=== PATIENT | male | born 1950 | race Caucasian/White ===

== ENCOUNTER → 2017-11-02 09:27 | Outpatient (CLI) | payer OTHER, SELFPAY ==
--- NOTE | 2017-11-02 09:35 | RAD_ITS ---
STUDY: X-RAY - CERVICAL SPINE REASON FOR EXAM: Male, 67 years old. Neck pain TECHNIQUE: 5 view(s) of the cervical spine were obtained. COMPARISON: None FINDINGS: There are degenerative changes of the anterior atlantoaxial articulation. Normal odontoid process. There is reversal of the normal cervical lordosis. There is multi-level endplate spondylosis. There is multi-level degenerative disc disease with multilevel disc space narrowing. There is multi-level osseous foraminal stenosis. The soft tissue structures are unremarkable. RAD/Cerv Spine 4 or 5 Views IMPRESSION: There is multi-level endplate spondylosis. There is multi-level degenerative disc disease with multilevel disc space narrowing. There is multi-level osseous foraminal stenosis. Electronically Signed: Valdemar Walker MD at 7:19 EDT Tel , Service support ,
--- NOTE | 2017-11-02 09:35 | RAD_ITS ---
STUDY: XR SPINE ENTIRE THORACIC T LUMBAR (W SKULL, CERVICAL AND SACRAL SPINE IF PERFORMED) REASON FOR EXAM: Male, 67 years old. hx of scoliosis, surgery on back when he was 18, hardware removed shortly after surgery TECHNIQUE: Radiological exam, spine, entire thoracic and lumbar, including skull, cervical and sacral spine if performed (eg, scoliosis evaluation); 2 or 3 views. COMPARISON: None. FINDINGS: There is a 71 degree dextroscoliosis of the thoracic spine with the apex of the convexity at the T8 level. There is a 14 degree levoscoliosis scoliosis of the lumbar spine with the apex of the convexity at the L2 level. Normal kyphosis of the thoracic spine. Normal thoracic vertebrae and endplates. Normal disc space heights of the thoracic spine. Normal lordosis of the lumbar spine. Normal lumbar vertebrae and endplates. Normal disc space heights of the lumbar spine. The soft tissue structures are unremarkable. RAD/Scoliosis 2 or 3 views IMPRESSION: There is a 71 degree dextroscoliosis of the thoracic spine with the apex of the convexity at the T8 level. There is a 14 degree levoscoliosis scoliosis of the lumbar spine with the apex of the convexity at the L2 level. Electronically Signed: Valdemar Walker MD at 7:27 EDT Tel , Service support ,
== END ==
PROVIDERS: Family Provider Family Medicine; PCP Family Medicine; Visit Provider Family Medicine
DX: M41.9 Scoliosis, unspecified (principal); M54.2 Cervicalgia; G89.29 Other chronic pain
CPT/HCPCS: 72050; 72082

== ENCOUNTER 2017-12-21 17:00 | Outpatient (RCR) | payer OTHER, SELFPAY ==
--- NOTE | 2017-11-11 11:22 | HP.PTEVAL_ITS ---
Patient's Visit Information NIA CUMMINGS is a 67 year old M referred to Physical Therapy by Ricki Arreguin MD with a diagnosis of NECK PAIN,DDD,SCOILOSIS. Date of Evaluation: 11/10/17 Physical Therapist: Boni Smallwood PT, - Visit Plan Frequency: 2x /Week Duration: 4 Weeks Plan: modliaties to include ICTX 16-22# X15 MIN,POSTURAL EX'S,MANUAL THERAPY, POSTURAL EX'S - Subjective Subjective: This 67 y/o male presents to physical therapy with cervical pain since May 2017. Patient sleeped in on Vacation ,symptoms got better but past 3 months worse. Patient has h/o scoliosis with surgery with olivas rods 50 years ago,but removed when 23 y/o . Patient is loctated right cercical radiates to right shoulder. Symptoms worse sleeping ,sitting,turning.Patient pain is constant. Patient c/o tingling,denies parathesia. Denies CABAN/tinnutis/dizziness. Patient pain affects sleeping has to take . NO h/o of trauma. Patient seen Dr did x-rays.Patient has h/o RTC.Pain level 4/5 without Advil. VOCATION: [employer]. SOCAIL: . HOBBIES: Mountain climb - Pain Right Neck Pain Intensity (Out of 10): 3 Pain Intensity Range: 10 - Objective POSTURE: mild foward posture ,left pelvis higher ,one inch higher due to scolilosis. GAIT: Ambulates with leaning to left due to scolisis. NEURO: denies parathesia/tingling ,reflexes C5-6-7. AROM: BE WFL. MMT: 4/5 grossly. PALAPTION: intact. CERVICAL ROM: flexion min loss,lateral flexion /rotation mod /severe loss,extension mod loss pain to right - Special Tests C/S Radiculapathy - Left Upper limb tension test: Negative C/S Radiculapathy - Right Upper limb tension test: Negative C/S Radiculapathy - Left Spurlings: Negative C/S Radiculapathy - Right Spurlings: Positive C/S Radiculapathy - Left Cervical distraction: Negative C/S Radiculapathy - Right Cervical distraction: Negative C/S Radiculapathy - Left Relief test: Negative C/S Radiculapathy - Right Relief test: Negative C/S Radiculapathy - Valsalva: Negative Sharp Zina: Negative Vertebral Artery Test: Negative Alar Ligament Test: Negative Cervical Sitting: Protrusion - Symptoms During Testing: No effect Cervical Sitting: Protrusion - Symptoms After Testing: No effect Cervical Sitting: Retraction - Mechanical Response: No effect Cervical Sitting: Retraction - Symptoms During Testing: Increases Cervical Sitting: Retraction - Symptoms After Testing: No worse - Goals Goal 1:: Independant with HEP Goal Time Frame: 4-6 Weeks Goal 2:: Independant with posture for ADL'S Goal Time Frame: 4-6 Weeks Goal 3:: Decrease right cervical pain and radicular symptoms to shoulder by 60% or greater to improve function. Goal Time Frame: 4-6 Weeks Goal 4:: Patient improve cervical ROM to improne function of recovery Goal Time Frame: 4-6 Weeks Goal 5:: Patient be able to perform ADL'S and housework tasks/job demands with min limitations. Goal Time Frame: 4-6 Weeks - Rehabilitation Potential Physical Therapy Diagnosis: This patient appears to have possible right lateral stenosis with h/o scoliosis thus could be a contributing factor with loss of motion,pain impairs function ,job demands and ADL'S Rehabilitation Potential: Good - Anticipated Interventions Patient/Client Instruction: Educate patient on: Condition, Plan of Care For the Purpose of:: To decrease pain, To increase ROM, To improve muscle performance and motor function, To improve ability to perform ADL's, To increase tolerance to activity/condition/position, To improve ability of physical actions for home/community/work/leisure, To improve health of tissue, To decrease soft tissue restriction, To increase flexibility/ROM, To improve health and function, To improve ability to perform tasks related to life management Therapeutic Exercise to Include: Strength training, Postural training, Flexibilty training, Scapular Strength/Stabilization For the Purpose of:: To decrease pain, To increase ROM, To improve muscle performance and motor function, To increase tolerance to activity/condition/ position, To improve performance and independence with ADL's, To improve ability of physical actions for home/community/work/leisure, To improve health of tissue, To decrease soft tissue restriction, To increase flexibility/ROM, To reduce risk of recurrence, To improve ability to perform tasks related to life management Manual Therapy Techniques to Include: Mobilization For the Purpose of:: To decrease pain, To increase ROM, To improve muscle performance and motor function, To improve ability to perform ADL's, To increase tolerance to activity/condition/position, To improve ability of physical actions for home/community/work/leisure, To improve health of tissue, To decrease soft tissue restriction, To increase flexibility/ROM, To reduce risk of recurrence, To improve ability to perform tasks related to life management TENS: Yes IF ES: Yes Cryotherapy (ice pack, ice massage): Yes Thermo therapy (hot pack): Yes Ultrasound (thermal/non thermal): Yes Intermittent cervical traction: Yes - 15-# For the Purpose of:: To decrease pain, To increase ROM, To improve nutrient delivery to tissue, To increase oxygenation perfusion, To improve health of tissue, To decrease soft tissue restriction, To increase flexibility/ROM Thank you for the opportunity to evaluate your patient. For Medicare and Medicare HMO plans, please review the plan of care and approve it. It will need to be FAXED BACK to us at [phone] for Medicare purposes. Please let me know if there are questions or concerns regarding this plan of care. Physician Signature: Date:
--- NOTE | 2017-12-21 17:51 | HP.PTEVAL_ITS ---
Patient's Visit Information NIA CUMMINGS is a 67 year old M referred to Physical Therapy by Ricki Arreguin MD with a diagnosis of NECK PAIN,DDD,SCOILOSIS. Date of Evaluation: 11/10/17 Physical Therapist: Boni Smallwood PT, - Visit Plan Frequency: 2x /Week Duration: 4 Weeks Plan: d/c to [facility] ,home traction unit - Subjective Subjective: This 67 y/o male presents to physical therapy with cervical pain since May 2017. Patient sleeped in on Vacation ,symptoms got better but past 3 months worse. Patient has h/o scoliosis with surgery with olivas rods 50 years ago,but removed when 23 y/o . Patient is loctated right cercical radiates to right shoulder. Symptoms worse sleeping ,sitting,turning.Patient pain is constant. Patient c/o tingling,denies parathesia. Denies CABAN/tinnutis/dizziness. Patient pain affects sleeping has to take . NO h/o of trauma. Patient seen Dr did x-rays.Patient has h/o RTC.Pain level 4/5 without Advil. VOCATION: [employer]. SOCAIL: . HOBBIES: Mountain climb - Pain Right Neck Pain Intensity (Out of 10): 1 Pain Intensity Range: 10 - Objective POSTURE: mild foward posture ,left pelvis higher ,one inch higher due to scolilosis. GAIT: Ambulates with leaning to left due to scolisis. NEURO: denies parathesia/tingling ,reflexes C5-6-7. AROM: BE WFL. MMT: 4/5 grossly. PALAPTION: intact. CERVICAL ROM: flexion min loss,lateral flexion /rotation mod /severe loss,extension mod loss pain to right - Special Tests C/S Radiculapathy - Left Upper limb tension test: Negative C/S Radiculapathy - Right Upper limb tension test: Negative C/S Radiculapathy - Left Spurlings: Negative C/S Radiculapathy - Right Spurlings: Positive C/S Radiculapathy - Left Cervical distraction: Negative C/S Radiculapathy - Right Cervical distraction: Negative C/S Radiculapathy - Left Relief test: Negative C/S Radiculapathy - Right Relief test: Negative C/S Radiculapathy - Valsalva: Negative Sharp Zina: Negative Vertebral Artery Test: Negative Alar Ligament Test: Negative Cervical Sitting: Protrusion - Symptoms During Testing: No effect Cervical Sitting: Protrusion - Symptoms After Testing: No effect Cervical Sitting: Retraction - Mechanical Response: No effect Cervical Sitting: Retraction - Symptoms During Testing: Increases Cervical Sitting: Retraction - Symptoms After Testing: No worse - Goals Goal 1:: Independant with HEP Goal Time Frame: 4-6 Weeks Goal 2:: Independant with posture for ADL'S Goal Time Frame: 4-6 Weeks Goal 3:: Decrease right cervical pain and radicular symptoms to shoulder by 60% or greater to improve function. Goal Time Frame: 4-6 Weeks Goal 4:: Patient improve cervical ROM to improne function of recovery Goal Time Frame: 4-6 Weeks Goal 5:: Patient be able to perform ADL'S and housework tasks/job demands with min limitations. Goal Time Frame: 4-6 Weeks - Rehabilitation Potential Physical Therapy Diagnosis: This patient appears to have possible right lateral stenosis with h/o scoliosis thus could be a contributing factor with loss of motion,pain impairs function ,job demands and ADL'S Rehabilitation Potential: Good - Anticipated Interventions Patient/Client Instruction: Educate patient on: Condition, Plan of Care For the Purpose of:: To decrease pain, To increase ROM, To improve muscle performance and motor function, To improve ability to perform ADL's, To increase tolerance to activity/condition/position, To improve ability of physical actions for home/community/work/leisure, To improve health of tissue, To decrease soft tissue restriction, To increase flexibility/ROM, To improve health and function, To improve ability to perform tasks related to life management Therapeutic Exercise to Include: Strength training, Postural training, Flexibilty training, Scapular Strength/Stabilization For the Purpose of:: To decrease pain, To increase ROM, To improve muscle performance and motor function, To increase tolerance to activity/condition/ position, To improve performance and independence with ADL's, To improve ability of physical actions for home/community/work/leisure, To improve health of tissue, To decrease soft tissue restriction, To increase flexibility/ROM, To reduce risk of recurrence, To improve ability to perform tasks related to life management Manual Therapy Techniques to Include: Mobilization For the Purpose of:: To decrease pain, To increase ROM, To improve muscle performance and motor function, To improve ability to perform ADL's, To increase tolerance to activity/condition/position, To improve ability of physical actions for home/community/work/leisure, To improve health of tissue, To decrease soft tissue restriction, To increase flexibility/ROM, To reduce risk of recurrence, To improve ability to perform tasks related to life management TENS: Yes IF ES: Yes Cryotherapy (ice pack, ice massage): Yes Thermo therapy (hot pack): Yes Ultrasound (thermal/non thermal): Yes Intermittent cervical traction: Yes - 15-# For the Purpose of:: To decrease pain, To increase ROM, To improve nutrient delivery to tissue, To increase oxygenation perfusion, To improve health of tissue, To decrease soft tissue restriction, To increase flexibility/ROM Thank you for the opportunity to evaluate your patient. For Medicare and Medicare HMO plans, please review the plan of care and approve it. It will need to be FAXED BACK to us at [phone] for Medicare purposes. Please let me know if there are questions or concerns regarding this plan of care. Physician Signature: Date:
--- NOTE | 2017-12-21 17:51 | HP.PTDCSUM_ITS ---
HP - PT D/C Summary It has been my pleasure to treat NIA CUMMINGS under orders from Ricki Arreguin MD, for the diagnosis of NECK PAIN,DDD,SCOILOSIS for a total of 10 visit(s). Discharge Date: 12/21/17 Please see the following information for a summary of their discharge status. - Subjective Subjective: Doing alot better.. Walking better ,less pain. I hardly noticted the symptoms only when I - Pain Right Neck Pain Intensity (Out of 10): 1 - Overall Improvement % Improvement: 75 - Objective Objective/Function: POSTURE: mild foward posture. PALAPTION: tender UT/ levator. NEURO: c/o tingling UT ,reflexes inact. MMT: 4/5 grossly. CERVICAL ROM: flexion min loss ,extension mod loss,lateral flexion/rotation mod loss tight to right - Goals Goal 1:: Independant with HEP Goal Progress: Goal Met Goal 2:: Independant with posture for ADL'S Goal Progress: Goal Met Goal 3:: Decrease right cervical pain and radicular symptoms to shoulder by 60% or greater to improve function. Goal Progress: Goal Met Goal 4:: Patient improve cervical ROM to improne function of recovery Goal Progress: Goal Met Goal 5:: Patient be able to perform ADL'S and housework tasks/job demands with min limitations. Goal Progress: Goal Met - Plan Plan: d/c to [facility] ,home traction unit - D/C Information Discharge Comments: [facility],HOME TRACTION. PATIENT PLANS TO HAVE MRI If there are questions or concerns regarding this patient's physical therapy, please feel free to call me at [phone]. Thank you for the referral of this patient. Sincerely, Boni Smallwood, PT,
== END 2017-12-21 19:00 | disposition home or self-care (01) ==
LOC: PT 17:00
PROVIDERS: Family Provider Family Medicine; PCP Family Medicine; Visit Provider Family Medicine
DX: M50.30 Other cervical disc degeneration, unspecified cervical region (principal); M41.9 Scoliosis, unspecified
CPT/HCPCS: 97012; 97035; 97110; 97162

== ENCOUNTER → 2017-12-26 17:09 | Outpatient (CLI) | payer OTHER, SELFPAY ==
--- NOTE | 2017-12-26 17:30 | MRI_ITS ---
STUDY: MRI CERVICAL SPINE WITHOUT CONTRAST REASON FOR EXAM: Male, 67 years old. Scoliosis, neck pain, right pain, numbness and tingling. TECHNIQUE: Standardized fat and water weighted pulse sequences were obtained in the sagittal and axial planes. COMPARISON: None FINDINGS: Normal foramen magnum and brainstem-cervical cord junction. Normal craniovertebral junction. Normal anterior atlantoaxial articulation. Normal odontoid process. There is reversal of the normal cervical lordosis. C2-3: There is minimal disc space narrowing and endplate spondylosis. There is a mild disc osteophyte complex without significant central canal stenosis. There is uncovertebral facet arthropathy with moderate right and mild left foraminal stenosis. C3-4: There is mild disc space narrowing and endplate spondylosis. There is minimal anterolisthesis. There is a mild disc osteophyte complex with mild central canal stenosis. There is uncovertebral and facet arthropathy with moderate right and mild left foraminal stenosis. C4-5: There is mild disc space narrowing and endplate spondylosis. There is minimal disc osteophyte complex with minimal central canal stenosis. There is uncovertebral and facet arthropathy with moderate right foraminal stenosis. There is no left foraminal stenosis. C5-6: There is moderate disc space narrowing and endplate spondylosis. There is a moderate disc osteophyte complex with right paracentral protrusion with moderate central canal stenosis and flattening of the ventral spinal cord. There is uncovertebral arthropathy with mild right foraminal stenosis. There is no left foraminal stenosis. C6-7: There is moderate disc space narrowing and endplate spondylosis. There is a mild disc osteophyte complex with mild central canal stenosis. There is uncovertebral arthropathy with mild right foraminal stenosis. There is no left foraminal stenosis. C7-T1: There is mild disc space narrowing and endplate spondylosis. There is a mild disc osteophyte complex with mild central canal stenosis. There is uncovertebral and facet arthropathy with moderate right foraminal stenosis. There is no left foraminal stenosis T1/T2:There is mild disc space narrowing and endplate spondylosis there is disc osteophyte complex and uncovertebral arthropathy with moderate right lateral recess and foraminal stenosis. There is mild central canal stenosis. There is no left foraminal stenosis. Normal cervical cord. Normal visualized soft tissue structures. MRI/Spine Cervical (Routine) IMPRESSION: C3/C4: Moderate right foraminal stenosis. C4/C5: Moderate right foraminal stenosis. Moderate central canal stenosis. C7/T1: Moderate right foraminal stenosis. T1/T2: Moderate right lateral recess and foraminal stenosis. Electronically Signed: Carlyle Dean MD at 10:02 EDT Tel , Service support ,
== END ==
PROVIDERS: Family Provider Family Medicine; PCP Family Medicine; Visit Provider Family Medicine
DX: M54.2 Cervicalgia (principal)
CPT/HCPCS: 72141

== ENCOUNTER → 2018-09-12 12:27 | Outpatient (CLI) | payer OTHER, SELFPAY ==
[2018-09-12 14:12] LABS: Absolute Lymphocyte Count 1.07 X10^3/ul (0.83-4.51); Absolute Neutrophil Count 5.9 X10^3/uL (2.0-7.7); Basophil# 0.02 X10^3/uL; Basophil% 0.3 % (0-1); Eosinophil# 0.06 X10^3/uL; Eosinophils% 0.8 % (0-5); Hematocrit 41.1 % (40-54); Hemoglobin 14.1 g/dl (13.0-16.5); Lymphocyte # 1.07 X10^3/ul (4.0); Mean Corp Hgb Conc 34.3 g/gl (32-36); Mean Corpuscular Volume 90.3 fL (80-94); Mean Platelet Vol. 9.5 fl (6.2-12.0); Monocyte# 0.56 X10^3/uL; Monocyte% 7.3 % (0-10); Neutrophil # 5.93 X10^3/uL (2.7-7.7); Neutrophil % 77.3 % (47-70); POSITIVE COUNT NO; POSITIVE DIFFERENTIAL NO; POSITIVE MORPHOLOGY NO; Platelet Count 131 K/mm3 (150-450); RBC Distribution Width SD 46.1 fl (35.1-43.9); Red Blood Count 4.55 M/mm3 (4.6-6.2); White Blood Count 7.7 K/mm3 (4.4-11.0)
[2018-09-12 14:48] LABS: Anion Gap 8 (5-15); BUN 16 mg/dL (7-18); BUN/Creat Ratio 14.5 RATIO (10-20); Calcium,Total 9.6 mg/dL (8.5-10.1); Chloride 109 mmol/L (98-107); EST Glomerular Filtration Rate 71 mL/min (>60); Est Glom Filt Rate - Afr Amer 86 mL/min (>60); Glucose 85 mg/dL (74-106); Magnesium 2.4 mg/dL (1.6-2.6); Potassium 4.3 mmol/L (3.5-5.1); Sodium Level 145 mmol/L (136-145); Thyroid Stim Hormone (TSH) 1.17 uIU/mL (0.358-3.74)
== END ==
PROVIDERS: Family Medicine; Family Provider Family Medicine; PCP Family Medicine; Visit Provider Family Medicine
DX: I49.1 Atrial premature depolarization (principal); K92.1 Melena
CPT/HCPCS: 36415; 80048; 83735; 84443; 85025

== ENCOUNTER → 2019-01-08 11:01 | Outpatient (CLI) | payer OTHER, SELFPAY ==
--- NOTE | 2019-01-08 11:04 | ECHOCS_ITS ---
Reason For Study: MURMUR Procedure This was a 2D Doppler, Color Flow transthoracic echocardiogram. The study was technically difficult. Contrast injection was performed. Exam performed in department. Left Ventricle Normal LV size. Left ventricular systolic function is normal. The estimated ejection fraction is 60 %. Unable to assess diastolic dysfunction. No regional wall motion abnormalities noted. Right Ventricle Normal RV size. Normal systolic function. Atria Normal left atrium. Normal right atrium. No doppler evidence for ASD. Mitral Valve There is mild mitral annular calcification. Normal mitral valve. Trivial mitral valve insufficiency. Tricuspid Valve Normal tricuspid valve. Trivial tricuspid valve insufficiency. Unable to estimate RV systolic pressure/pulmonary artery pressure due to technically difficult study. Aortic Valve Trisinus/trileaflet aortic valve. Moderate focal aortic valve calcification. Pulmonic Valve The pulmonic valve is not well visualized. Great Vessels Normal sized aortic root. Pericardium/Pleural No pericardial effusion. Medication 22 gauge I.V. with prn adaptor inserted into right arm. Diluted definity 3ml given slow IV push to enhance endocardial definition. MMode/2D Measurements & Calculations LVIDd: 4.4 cm IVSd: 0.85 cm LVOT diam: 2.1 cm LVIDs: 2.8 cm LVPWd: 0.88 cm RVDd: 3.7 cm FS: 36.4 % LVOT area: 3.3 cm2 Ao root diam: 3.0 cm LAV(MOD-bp): 42.4 ml LA A4 area: 15.3 cm2 LAV(MOD-bp) Indexed: 20.3 ml/m2 LAV(MOD-sp2): 44.4 ml LAV(MOD-sp4): 39.4 ml LA dimension(2D): 3.9 cm RA A4 area: 16.6 cm2 Time Measurements MV dec time: 0.22 sec Doppler Measurements & Calculations MV E max zachary: 83.4 cm/sec Lat Peak E' Zachary: 4.5 cm/sec Med Peak E' Zachary: 8.2 cm/sec MV A max zachary: 90.3 cm/sec E/E' lat: 18.5 E/E' med: 10.2 MV E/A: 0.92 Ao V2 max: 118.8 cm/sec LV V1 max: 115.7 cm/sec Ao max P.7 mmHg LV V1 max P.4 mmHg RONALD(V,D): 3.2 cm2 Interpretation Summary The study was technically difficult. Contrast injection was performed. Left ventricular systolic function is normal. The estimated ejection fraction is 60 %. There is mild mitral annular calcification. Trivial mitral valve insufficiency. Trivial tricuspid valve insufficiency. Moderate focal aortic valve calcification. Unable to estimate RV systolic pressure/pulmonary artery pressure due to technically difficult study. Unable to assess diastolic dysfunction. Ordering Physician: Teddy Doll Referring Physician: Teddy Doll Performed By: Nery Yuen, TISH, RVT
== END ==
PROVIDERS: Family Provider Family Medicine; PCP Family Medicine; Referring Provider Family Medicine; Visit Provider Family Medicine
DX: R01.1 Cardiac murmur, unspecified (principal)
CPT/HCPCS: 93306; Q9957; A4216; C8929

== ENCOUNTER → 2020-09-11 08:11 | Outpatient (CLI) | payer OTHER, SELFPAY ==
[2020-09-11 10:38] LABS: ALB/GLOB Ratio 0.8 RATIO (0.9-2.4); AST(SGOT) 20 U/L (15-37); Alanine Aminotransfer ALT/SGPT 24 U/L (16-61); Albumin, Serum 3.4 g/dL (3.2-5.0); Alkaline Phosphatase 93 U/L (45-117); Anion Gap 3 (5-15); BUN 19 mg/dL (7-18); BUN/Creat Ratio 14.8 RATIO (10-20); Calcium,Total 10.4 mg/dL (8.5-10.1); Chloride 108 mmol/L (98-107); Cholesterol 207 mg/dL (200); Creatinine, Serum 1.28 mg/dL (0.70-1.30); EST Glomerular Filtration Rate 59 mL/min (>60); Est Glom Filt Rate - Afr Amer 72 mL/min (>60); Glucose 105 mg/dL (74-106); High Density Lipoprotein 51 mg/dL; PSA,Total - Annual Screen 2.31 ng/mL (0.00-4.00); Potassium 3.9 mmol/L (3.5-5.1); Protein, Total 7.4 g/dL (6.4-8.2); Sodium Level 140 mmol/L (136-145); Triglycerides 88 mg/dL; Very Low Density Lipoprotein 18 mg/dL (5-40)
== END ==
PROVIDERS: PCP Family Medicine; Referring Provider Family Medicine; Visit Provider Family Medicine
DX: I10 Essential (primary) hypertension (principal); Z12.5 Encounter for screening for malignant neoplasm of prostate
CPT/HCPCS: 36415; 80053; 80061; 84153; G0103

== ENCOUNTER → 2020-10-29 12:50 | Outpatient (CLI) | payer OTHER, SELFPAY ==
--- NOTE | 2020-10-29 14:45 | PFTCOMP ---
COMPLETE PULMONARY FUNCTION TEST INTERPRETATION Brief HPI: Patient is a 70 year old male, currently under the care of Dr. Wolf, who presents to [facility] for complete pulmonary function tests secondary to diagnosis of COPD. Respiratory therapist reports good effort and reproducible results. Interpretation: Forced expiration spirometry shows no large airways obstructive ventilatory defect with an FEV1 of 67% predicted. There is no significant bronchodilator response by strict ATS criteria. Spirograms are of good quality and plateau normally. The respiratory flow volume loop shows a normal pattern. Lung volumes by body plethysmography show a decreased total lung capacity at 5.01 L, 77% predicted. All other lung volumes are reduced symmetrically. Diffusion capacity by carbon monoxide is normal at 84% predicted. The airway resistance is normal. No previous pulmonary function tests were available for review. Impression: Mild restrictive ventilatory defect with preserved diffusion capacity.
== END ==
PROVIDERS: PCP Family Medicine; Referring Provider Family Medicine; Visit Provider Family Medicine
DX: J44.9 Chronic obstructive pulmonary disease, unspecified (principal)
CPT/HCPCS: 94060; 94726; 94729

== ENCOUNTER → 2020-11-18 14:35 | Outpatient (CLI) | payer SELFPAY ==
--- NOTE | 2020-11-18 15:15 | CT_ITS ---
STUDY: CARDIAC CALCIUM SCORING - CT CHEST REASON FOR EXAM: Male, 70 years old. HLD RADIATION DOSAGE (If Supplied By Facility): CTDIvol = ( ) mGy, DLP = ( 243.79 ) mGycm TECHNIQUE: Axial non-enhanced images were acquired through the heart for the sole purpose of measuring coronary artery calcium. Individualized dose optimization techniques were used for this CT. COMPARISON: None. FINDINGS: Visualized surrounding anatomy: Normal. 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 Please go to: [email or web address]-[email or web address] , for a description of the calculator. Electronically Signed: Jared Nguyen MD at 15:46 EDT , Service support ,
--- NOTE | 2020-11-18 18:40 | CA.SCORE ---
Calcium Scoring Date of Study:: 11/18/20 Coronary Calcium Scoring: High-resolution Computed Tomographic imaging of the chest was performed on 11/18/2020 with particular attention paid to the coronary arteries. Images from the examination were analyzed for the presence and extent of coronary artery calcification , using coronary calcium quantification software. The patient tolerated the procedure well and there were no complications. The results of the coronary calcification analysis are provided below. - Findings Left Main (LM): 80.7 Left Anterior Descending (LAD): 31.6 Left Circumflex (LCX): 3.97 Right Coronary Artery (RCA): 29.0 Total Agatston Score: 145.27 Percentile Ranking: Based upon prepublished reference tables between 25% and 50% of patients of the same gender/similar age had the same/lower scores Calcium Scoring Interpretation: 0 No identifiable atherosclerotic plaque. Very low cardiovascular disease risk. <5% chance of presence coronary artery disease A Negative Examination 1-10 Minimal Plaque burden. Significant coronary artery disease very unlikely. 11-100 Mild plaque burden. Likely mild or minimal coronary atherosclerosis. 101-400 Moderate plaque burden Moderate non-obstructive coronary artery disease highly likely. Over 400 Extensive plaque burden. High likelihood of at least one significant coronary stenosis (>50% diameter) Calcium Score: 101 - 400 Moderate non-obstructive coronary artery disease highly like - Continue cardiovascular risk factor evaluation and care as deemed appropriate.
== END ==
PROVIDERS: PCP Family Medicine; Referring Provider Family Medicine; Visit Provider Family Medicine
DX: E78.5 Hyperlipidemia, unspecified (principal); I10 Essential (primary) hypertension
CPT/HCPCS: 75571; 76380